=== PATIENT | male | born 1980 | race Two or more races ===

== ENCOUNTER 2018-11-04 10:38 | Emergency (ER) | payer MEDICAID ==
[~2018-11-04] VITALS: Ht 177.8 cm; Wt 67.8 kg
[~2018-11-04 10:38] MED LIST: ALPR1TAB2; PRO1I
[2018-11-04 11:01] VITALS: BP 144/88
[2018-11-04] MEDS ORDERED: KETOROLAC TROMETH 60MG/2ML VIAL IM ONE (14:00)
== END 2018-11-04 14:07 | disposition home or self-care (01) ==
LOC: ER 10:38
DX: M77.51 Other enthesopathy of right foot and ankle (principal); I10 Essential (primary) hypertension; X58.XXXA Exposure to other specified factors, initial encounter; Y93.01 Activity, walking, marching and hiking; Y92.89 Other specified places as the place of occurrence of the external cause; Y99.8 Other external cause status
CPT/HCPCS: 73630; 96372; 99283; J1885

== ENCOUNTER 2019-02-27 20:15 | Emergency (ER) | payer MEDICAID ==
[~2019-02-27] VITALS: Ht 177.8 cm; Wt 132.9 kg
[2019-02-27 20:51] VITALS: BP 138/78
[2019-02-27 23:10] LABS: Urine Bacteria NONE SEEN /hpf (None Seen); Urine Blood Negative /uL (Negative); Urine Hyaline Cast FEW /lpf (0 - 2); Urine Mucus FEW (None Seen); Urine WBC 1 /hpf (0 - 3)
== END 2019-02-27 21:11 | disposition left against medical advice (07) ==
LOC: ER 20:17
DX: R00.2 Palpitations (principal); Z53.21 Procedure and treatment not carried out due to patient leaving prior to being seen by health care provider
CPT/HCPCS: 81001; 93005